=== PATIENT | female | born 1980 | race Caucasian/White ===

== ENCOUNTER → 2016-10-19 | Outpatient (CLI) | payer OTHER ==
--- NOTE | 2016-10-19 14:10 | DI ---
MRI LUMBAR SPINE W/O CN,10/19/2016 12:38 PM: Clinical History: Clavicular pain of the right lower back. Previous Exam: CT pelvis performed May 05, 2015 Findings: Multiplanar MR images are obtained through the lumbar spine without contrast, and demonstrate anatomi c alignment without fractures. Vertebral body height is preserved. Intervertebral disc height is also preserved. There are mild degenerative changes of the posterior articulating facets. There is no evidence of spo ndylolysis. Visualized paraspinal soft tissues are unremarkable. The kidneys are unremarkable. The spinal cord descends normally with normal course normal conus at the L2 level. Individual intervertebral disc spaces: L1-L3 colonoscopy stenosis. L3/4: There is a broad-based disc bulge with some facet and ligamentum flavum hypertrophy causing no significant neural foraminal narrowing. L4/5: There is a broad-based disc bulge, some disc desiccation and a small annular fissure involving the disc with facet and ligamentum flavum hypertrophy without significant stenosis. L5/S1: There is disc desiccation, annular fissuring and a broad-based disc bulge with facet and ligam entum flavum hypertrophy contributing to mild bilateral recess stenosis. Impression: Mild degenerative disc disease of the lower lumbar spine causing mild bilateral lateral recess stenos is.
== END ==
LOC: MRI 12:34
PROVIDERS: ATTEND Internal Medicine
DX: M54.16 Radiculopathy, lumbar region (principal); M47.26 Other spondylosis with radiculopathy, lumbar region; M51.16 Intervertebral disc disorders with radiculopathy, lumbar region
CPT/HCPCS: 72148

== ENCOUNTER → 2016-10-31 | Outpatient (CLI) | payer OTHER ==
--- NOTE | 2016-10-31 15:11 | DI ---
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 Previous Exam: None at this facility. Upright AP and lateral and upright lateral flexion and extension views are submitted. The vertebral b odies are of normal height and size. There is partial ossification of the anterior longitudinal ligam ent at T11-12. The disc spaces are normal. The pedicles and posterior elements are unremarkable. Flex ion and extension views show no instability. Both SI joints are normal. Readin. Normal lumbar spine series. 2. No instability is noted with flexion and extension maneuvers.
== END ==
LOC: MOB RAD 14:09
PROVIDERS: ATTEND Physician Assistant
DX: M47.26 Other spondylosis with radiculopathy, lumbar region (principal); F17.210 Nicotine dependence, cigarettes, uncomplicated
CPT/HCPCS: 72110

== ENCOUNTER 2017-01-13 19:39 | Emergency (ER) | payer OTHER ==
[2017-01-13 19:57] VITALS: RESP 16; TEMP 97.3
[2017-01-13] MEDS ORDERED: NORMAL SALINE 10 ML SYRINGE FLUSH IVP PRN (20:04)
--- NOTE | 2017-01-13 20:07 | EKG ---
[address] [address] Measurements Intervals [place] Rate: 72 P: 42 OR: 215 QRS: 61 QRSD: 102 T: 36 QT: 371 QTc: 395 Interpretive Statements SINUS RHYTHM WITH FIRST DEGREE AV BLOCK INTERPRETATION BASED ON A DEFAULT AGE OF 40 YEARS No previous ECG available for comparison Electronically Signed On 01-14-17 10:14:07 MDT by Loco Barcenas MD [email or web address]
[2017-01-13 20:19] LABS: BASOPHILS # (AUTO) 0.03 10*3/UL; BASOPHILS % (AUTO) 0.4 % (0-1); EOSINOPHILS # (AUTO) 0.21 10*3/UL; EOSINOPHILS % (AUTO) 3.1 % (0-8); HEMATOCRIT 40.3 % (37.0-47.0); HEMOGLOBIN 13.7 g/dL (12.0-16.0); LYMPHOCYTES # (AUTO) 1.96 10*3/uL; MEAN CORPUSCULAR HEMOGLOBIN 30.2 PG (27-31); MEAN CORPUSCULAR VOLUME 88.8 FL (81-99); MEAN PLATELET VOLUME 11.1 FL (7.4-12.2); MONOCYTES # (AUTO) 0.46 10*3/UL (0.3-0.8); MONOCYTES % (AUTO) 6.9 % (5-15); NEUTROPHILS % (AUTO) 60.1 % (50-80); RED BLOOD COUNT 4.54 10^6/uL (4.20-5.40)
[2017-01-13 20:23] LABS: PLATELET MORPHOLOGY COMMENT NORMAL MORPHOLOGY (NORM); RBC MORPHOLOGY COMMENT NORMAL MORPHOLOGY (NORM); WBC MORPHOLOGY COMMENT NORMAL MORPHOLOGY (NORM)
[2017-01-13 20:37] LABS: BLOOD UREA NITROGEN 19 mg/dL (7-22); BUN/CREATININE RATIO 21.11 (6-20); C-REACTIVE PROTEIN 0.5 mg/dL (0.0-0.9); CALCIUM 9.3 mg/dL (8.7-10.7); EST GLOMERULAR FILTRATION > 60 (>60 ml/min/1.73m(2)); MAGNESIUM 1.8 mg/dL (1.6-2.4); SERUM ALBUMIN 4.3 g/dL (3.5-4.8)
[2017-01-13] MEDS ORDERED: PARoxetine Tab 20 MG TAB PO ONE (21:09)
--- NOTE | 2017-01-13 21:28 | PDOC ---
Palpitations HPI - General Chief Complaint: Palpitations Stated Complaint: HEART PALPITATIONS, FEELS BP IN NECK Date Seen by Provider: 01/13/17 Time Seen by Provider: 19:40 Source: POSITIVE: Patient Exam Limitations: POSITIVE: No limitations Nurse's Notes Reviewed & Considered: Yes - History of Present Illness Initial Comments: The patient is a 36-year-old female who presents to the emergency department with complaints of palpitations and elevated blood pressure. She states that she has a history of eclampsia and preeclampsia during previous pregnancies. She reports that she is very sensitive to elevations in her blood pressure and generally develops symptoms when her blood pressure is elevated. She reports for the past several days she has had some increased palpitations as well as some pressure across her chest. She also reports shortness of breath which seems worse with activity. She has had cold sweats. She has tested her blood pressure couple of times at home and it is been elevated. She denies any leg pain or swelling. She does have a history of anxiety and generally takes Paxil and clonazepam. She does report that she has been out of Paxil for the past 4 days. In addition she does report a very strong family history of blood clots, heart disease, strokes and various forms of cancer. The patient reports that she quit smoking approximately 2 months ago after a very brief period of smoking lasting less than 3 months. She reports drinking 2 or 3 diet Mountain Dew's a day. She denies significant alcohol or illicit drug use. - Patient Home Medications Home Medications: Home Medications Paroxetine HCl 1 tab PO DAILY #90 tab 02/08/16 Ibuprofen 1 tab PO TID PRN #90 tab 10/15/16 Gabapentin 1 cap PO QHS #30 cap 10/31/16 Clonazepam 1 tab PO TID PRN #90 tab 11/23/16 Paroxetine HCl [Paxil] 20 mg PO DAILY #30 tablet 01/13/17 - Patient Allergies Allergies/Adverse Reactions: Allergies Allergy/AdvReac Type Severity Reaction Status Date / Time No Known Drug Allergies Allergy NOT Verified 01/13/17 19:51 APPLICABLE Past Medical History - heen HEENT History: Denies History Cardiovascular History: Denies History Respiratory History: Other (please comment) Additional Respiratory History: ALLERGIES, BRONCHITIS Gastrointestinal History: Denies History Genitourinary History: Denies History Endocrine History: Denies History Musculoskeletal History: Other (please comment) Additional Musculoskeletal History: RT ANKLE SURGERY WITH PINS, LT KNEE SCOPE Neurological History: Denies History Blood Disorders: Denies History Psychiatric History: Depression, Anxiety Disorders History of Sexually Transmitted Diseases: No Female Reproductive History: Denies History Obstetrical History: Delivery Cancer History: Denies History In Past Year Been Physically Harmed or Verbally Threatened: No History of MDRO: No History of Other Communicable Diseases: No Tobacco Use: Former Smoker Alcohol Use: Rarely Substance Use Type: None Previous Surgical History: No Type / Date of Surgery: RT ANKLE, LT KNEE SCOPE Significant Family History: No pertinent family hx Past Medical History Reviewed: Reviewed - No Changes ROS - Limitations ROS Limitations: No Limitations Constitution: REPORTS: Chills, Diaphoresis. DENIES: Fever Cardiovascular: REPORTS: Chest Pain (More of a pressure across her chest), Heart Palpitations, Blood Pressure Problem (Blood pressure is been elevated the last couple of days). DENIES: Edema Respiratory: REPORTS: Shortness Of Breath. DENIES: Cough Non Productive, Cough Productive, Hurts To Breathe Neurological: REPORTS: Denies Neuro Symptoms Gastrointestinal: REPORTS: Nausea. DENIES: Abdominal Pain, Vomitting Endocrine: REPORTS: Fatigue Genitourinary: REPORTS: Denies Symptoms Eyes: REPORTS: Denies Symptoms ENT: REPORTS: Denies Symptoms Skin: DENIES: Rash Palpitations Exam - General Appearance General Appearance: REPORTS: Alert, Cooperative, No Acute Distress - HEENT HEENT: POSITIVE: Head Inspection Nml, Eyes Inspection Nml, Ears Inspection Nml, Pharynx Inspect. Nml, PERRL, EOMI - Neck Neck: POSITIVE: Normal Inspection. NEGATIVE: Lymphadenopathy - Respiratory Respiratory: REPORTS: No Respiratory Distress, Breath Sounds Normal - Cardiovascular Cardiovascular: POSITIVE: Regular Rate and Rhythm, No JVD, No Murmur Peripheral Pulses: Dorsalis-pedis (R): 2+, Dorsalis-pedis (L): 2+ - Abdomen Abdomen: Soft: (All Quadrants), Denies Tenderness: (All Quadrants), No Distention: (All Quadrants) - Back Back: NEGATIVE: CVA Tenderness (R), CVA Tenderness (L) - Skin Skin: REPORTS: Intact, No Rash - Extremities Extremity: Normal ROM: (All Extremities), Normal Inspection: (All Extremities) - Neurological / Psychological Neurological: POSITIVE: Oriented X3, 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 Lab Results Reviewed: Yes Lab Results:: Laboratory Results 01/13/17 Range/Units 20:14 WBC 6.67 (4.8-10.8) 10^3/uL RBC 4.54 (4.20-5.40) 10^6/uL Hgb 13.7 (12.0-16.0) g/dL Hct 40.3 (37.0-47.0) % MCV 88.8 (81-99) FL MCH 30.2 (27-31) PG MCHC 34.0 (33-37) g/dL RDW Std Deviation 40.5 (39-50) fL RDW Coeff of Karan 12.7 (11.5-14.5) % Plt Count 194 (140-350) 10*3/uL MPV 11.1 (7.4-12.2) FL Immature Gran % (Auto) 0.1 (0-5) % Neut % (Auto) 60.1 (50-80) % Lymph % (Auto) 29.4 (10-50) % [place] % (Auto) 6.9 (5-15) % Eos % (Auto) 3.1 (0-8) % Baso % (Auto) 0.4 (0-1) % Immature Gran # (Auto) 0.01 10*3/UL Neut # (Auto) 4.00 10*3/UL Lymph # (Auto) 1.96 10*3/uL [place] # (Auto) 0.46 (0.3-0.8) 10*3/UL Eos # (Auto) 0.21 10*3/UL Baso # (Auto) 0.03 10*3/UL WBC Morphology Comment Normal morphology (NORM) Plt Morphology Comment Normal morphology (NORM) RBC Morph Comment Normal morphology (NORM) D-Dimer 0.22 (0.00-0.59) mg/L Sodium 141 (135-145) meq/L Potassium 3.6 L (3.8-5.2) meq/L Chloride 106 (98-112) meq/L Carbon Dioxide 24 (23-33) meq/L Anion Gap 11 (5-20) BUN 19 (7-22) mg/dL Creatinine 0.9 (0.50-1.20) mg/dL Estimated GFR > 60 (>60 ml/min/1.73m(2)) BUN/Creatinine Ratio 21.11 H (6-20) Glucose 77 L (78-110) mg/dL Calculated Osmolality 292.0 (267-292) mOsm/kg Calcium 9.3 (8.7-10.7) mg/dL Magnesium 1.8 (1.6-2.4) mg/dL Total Bilirubin 0.5 (0.3-1.2) mg/dL AST 30 (8-39) IU/L ALT 24 (9-52) IU/L Alkaline Phosphatase 51 (38-126) IU/L Troponin I < 0.012 (< 0.040) ng/mL C-Reactive Protein 0.5 (0.0-0.9) mg/dL NT-Pro-B Natriuret Pep 29.0 (0-125) PG/ML Total Protein 7.4 (6.1-8.0) g/dL Albumin 4.3 (3.5-4.8) g/dL Globulin 3.1 (2.50-4.10) g/dL Albumin/Globulin Ratio 1.30 (1.3-2.0) mg/g TSH 2.15 (0.2700-4.2000) uIU/mL Serum HCG, Qual Negative EKG Interpreted/Reviewed By Me:: Yes EKG Interpretation:: POSITIVE: Normal Sinus Rhythm, Normal Rate, Normal Intervals, Normal QRS, Normal ST/T - Patient's Progress MDM / ED Course: The patient's blood pressure is slightly elevated. Her lab work, EKG and chest x-ray are all essentially unremarkable except for slightly low calcium. At this point I think her symptoms are most likely related to her running out of Paxil 4 days ago. She will be restarted on Paxil and was given a dose here in the emergency room. She is advised to continue to monitor her blood pressure. She will schedule follow-up appointment with her primary care provider. Because of her strong family history I think it would be advisable for her to discuss the possibility of doing a stress test to further evaluate her heart. She is advised return to the emergency room if she develops any worsening or change in symptoms. - Consult Counseled: POSITIVE: Patient, Family, RE: Lab Results, RE: Radiology Results, RE : DX, RE: Need for F/U Patient Care Time - Estimated PCT Patient Care Time (In Minutes): 35 Vital Signs - Recent Vital Signs Vital Signs: Vital Signs (Last 8 hours) Temp Pulse Resp BP Pulse Ox 01/13/17 20:04 97.3 F 67 16 140/96 99 01/13/17 19:39 97.3 F 67 16 140/96 99 - VS Reviewed Vital Signs Reviewed: Yes Discharge Clinical Impression: Palpitations Condition: Stable Prescriptions / Orders: Paroxetine HCl [Paxil] 20 mg PO DAILY #30 tablet Patient Instructions Given at Discharge: Palpitations (ED) Additional Instructions: The palpitations and other symptoms that you're experiencing may be related to not having her Paxil. This can also cause changes in your blood pressure. Recommend restarting Paxil 20 mg daily as previously prescribed. Limit caffeine. Return to the emergency room if any worsening or change in symptoms. Because of your strong family history I would advise discussing the possibility of doing some type of stress testing to further evaluate your heart to make sure that is not contributing to any of these symptoms. All of your testing done here in the emergency room including her EKG, blood work and chest x-ray were essentially normal except for a slightly low potassium. Return to the emergency room if any worsening or change in symptoms. Follow-up with primary care in 3-5 days. Follow Up With: IBRAHIMA CAR [Primary Care Provider] -
--- NOTE | 2017-01-13 21:54 | DI ---
PA /LATERAL CHEST X-RAY, 01/13/2017 8:04 PM : Clinical History: Chest pressure. Previous Exam: 05/05/2013. There is no acute soft tissue or bony abnormality. The heart size is normal, but there is prominence of the right ventricular contour and this was even more evident on the previous film. The aorta is no rmal in caliber to slightly small. There is pulmonary arterial hypertension without a definite left o r right shunt. The findings are still suspicious for an ASD and echocardiography is recommended. Lung s are clear. Mediastinal structures are normal. There are no pulmonary nodules. Readin. There is no acute infiltrate or effusion. 2. The heart size is normal but there is prominence of the right ventricular contour with pulmonary arterial hypertension without definite left to right shunt. This appearance was more prominent on the previous exam An ASD is still suspicious and echocardiography is recommended.
== END 2017-01-13 21:30 | disposition home or self-care (01) ==
LOC: ER 19:39
DX: R00.2 Palpitations (principal); R06.02 Shortness of breath
CPT/HCPCS: 71020; 80053; 83735; 83880; 84443; 84484; 84703; 85025; 85379; 86140; 93005; 93010; 99284